=== PATIENT | male | born 1985 | race Caucasian/White ===

== ENCOUNTER 2018-06-09 09:11 | Emergency (ER) | payer MEDICAID ==
[2018-06-09] MEDS ORDERED: KETOROLAC 30 MG/1 ML SDV IVP ONE (11:02)
[2018-06-09] MEDS ORDERED: DEXAMETHASONE 10 MG/ML VIAL IVP ONE (11:02)
[2018-06-09] MEDS ORDERED: CYCLOBENZAPRINE 10 MG TAB PO ONE (11:04)
[2018-06-09] MEDS ORDERED: fentaNYL 100 MCG/2 ML INJ IVP ONE (11:04)
--- NOTE | 2018-06-09 11:09 | EDPHY ---
H & P Stated Complaint: NICOLE Time Seen by Provider: 06/09/18 10:34 HPI/ROS: CHIEF COMPLAINT: Right-sided headache HISTORY OF PRESENT ILLNESS: 33-year-old male presents emergency department reporting that for the last 3 weeks he has frequently been waking up around 5: 00 a.m. In the morning with a severe right-sided headache. Pain seems to emanate from the occipital area and upper neck on the right. Patient feels like he is dehydrated when he wakes in the morning he "guzzles a bunch of fluid ". He then vomits. He has otherwise had no nausea or vomiting with these headaches. Patient also feels that he is off balance. No weakness, numbness or tingling in arms or legs. No cold symptoms. Has a history of prior headaches thought to be associated to poor dentition. Denies an actual history of migraine headaches. Currently is living at a friend's home. No fevers or chills. No chest pain, shortness of breath, palpitations, the diarrhea, urinary complaints. REVIEW OF SYSTEMS: A comprehensive 10 system review of systems was reviewed and is otherwise negative aside from elements mentioned in the history of present illness and medical decision making. PAST MEDICAL HISTORY: Headaches. SOCIAL HISTORY: Prior history of homelessness, currently staying with a friend. Nonsmoker. No alcohol. Does smoke marijuana occasionally. VITAL SIGNS Reviewed by me. GENERAL: Well-developed, well-nourished, intermittently tearful when he is describing his headache pain.. HEENT: Atraumatic. Eyes: PERRL, EOMI, no nystagmus. No icterus. No injection. Mouth: moist mucous membranes. No erythema or lesions. Poor dentition throughout, but patient denies any acute dental pain. Neck: No meningitis. Tenderness at the right occipital condyle and high cervical spine. No adenopathy. Negative Kernig's. Negative Brudzinski's. No meningismus. LUNGS: Clear to auscultation bilaterally, no wheezes, rhonchi or rales. CARDIAC: Regular rate and rhythm, no rubs, murmurs or gallops. ABDOMEN: Soft, nontender, nondistended, bowel sounds normal. BACK: No CVA tenderness. EXTREMITIES: No trauma. No edema. Range of motion is normal throughout. NEURO: Alert and oriented, cranial nerves II through XII are intact. Motor strength 5 over 5 in all major muscle groups. Sensation intact to light touch. Normal gait. [id number] and [id number] normal. SKIN: Warm and dry, no rash. PSYCHIATRIC: Normal mentation, no agitation. - Personal History Current Tetanus/Diphtheria Vaccine: Yes Current Tetanus Diphtheria and Acellular Pertussis (TDAP): Yes Tetanus Vaccine Date: < 10 years - Medical/Surgical History Hx Asthma: No Hx Chronic Respiratory Disease: No Hx Diabetes: No Hx Cardiac Disease: No Hx Renal Disease: No Hx Cirrhosis: No Hx Alcoholism: No Hx HIV/AIDS: No Hx Splenectomy or Spleen Trauma: No Other PMH: JOSEP, migraines, - Social History Smoking Status: Former smoker Constitutional: Initial Vital Signs Temperature (C) 36.4 C 06/09/18 09:36 Heart Rate 62 06/09/18 09:36 Respiratory Rate 24 H 06/09/18 09:36 Blood Pressure 118/67 06/09/18 09:36 O2 Sat (%) 100 06/09/18 09:36 O2 Delivery Mode Room Air O2 (L/minute) 2 Allergies/Adverse Reactions: No Known Allergies Allergy (Verified 06/09/18 09:35) Home Medications: Medication Instructions Recorded Carisoprodol [Soma (*)] 350 mg PO TIDMEAL PRN #20 tab 06/09/18 traMADol [Ultram 50 mg (*)] 50 mg PO Q4 PRN #20 tab 06/09/18 Medical Decision Making - Diagnostics Imaging Results: CT Head: Impression: 1. Normal CT brain without contrast. 2. No sinusitis. 3. No acute hemorrhage. Findings and recommendations discussed with Emergency Department physician, Sabine Sunshine MD, at 1130 hour, 06/09/2018. Final report concurs with initial preliminary interpretation. Dictated By: Librado Carballo CT Cervical spine: Impression: 1. No definite fracture. 2. Mild to moderate degenerative disk disease from C4-C5 through C6-C7 resulting in mild central canal stenosis and mild to moderate bilateral neural foraminal stenosis. 3.If there is persistent pain or neurological deficit, recommend MR cervical spine and consider flexion and extension views, if clinically indicated. Findings and recommendations discussed with Emergency Department physician, Sabine Sunshine MD, at 1130 hour , 06/09/2018. Final report concurs with initial preliminary interpretation. Dictated By: Librado Carballo Imaging: Discussed imaging studies w/ call circuit worker Radiologist ED Course/Re-evaluation: 33 year old male with history of right sided headache when waking for the past several weeks. Ct scan of head demonstrates no acute finding; Ct of cervical spine demonstrates DJD without acute fracture. On exam: patient's headache pain seems to emminate from the right occipital condlye and upper c-spine. Suspect muscular etiology or tension headache etiology of pain. Patient has not taken meds for his headache. Doubt serious intracranial pathology with neg head CT. Neurologic exam is normal, TM's are clear. No evidence for gait instability on my examination. Given decadron, flexeril, toradol and small amount of fentanyl. Referred to PCP and to neurology. May represent a cluster headache phenomena. Differential Diagnosis: After history was obtained, and the physical exam performed, a differential for headache was considered including, but not limited to, subarachnoid hemorrhage, migraine headache, tension headache and infectious causes such as meningitis, sinusitis, encephalitis. - Data Points Laboratory Results: Laboratory Results 06/09/18 10:55 06/09/18 10:55 Medications Given: Discontinued Medications Cyclobenzaprine HCl (Flexeril) 10 mg PO EDNOW ONE Stop: 06/09/18 11:05 Last Admin: 06/09/18 11:25 Dose: 10 mg Dexamethasone (Decadron Injection) 10 mg IVP EDNOW ONE Stop: 06/09/18 11:03 Last Admin: 06/09/18 11:27 Dose: 10 mg Fentanyl (Sublimaze) 50 mcg IVP EDNOW ONE Stop: 06/09/18 11:05 Last Admin: 06/09/18 11:27 Dose: 50 mcg Ketorolac Tromethamine (Toradol) 30 mg IVP EDNOW ONE Stop: 06/09/18 11:03 Last Admin: 06/09/18 11:26 Dose: 30 mg Departure - Departure Disposition: Home, Routine, Self-Care Clinical Impression: Headache Qualifiers: Headache type: unspecified Headache chronicity pattern: chronic headache Intractability: not intractable Qualified Code(s): R51 - Headache Condition: Good Instructions: Cluster Headache (ED), Tension Headache (ED), Acute Headache (ED) Additional Instructions: There is no clear cause of your headaches identified on the CT scan or on the CT scan of your neck. You do have some degenerative changes in your neck. This may be causing the neck pain. I suggested you take Soma as directed. This is a muscle relaxant. You also may take Tylenol and ibuprofen as needed to help with the headache discomfort. You have also been given a prescription for tramadol to use as needed for more severe headache pain. Please follow up with the neurologist as directed. Referrals: NONE *PRIMARY CARE P,. [Primary Care Provider] - As per Instructions Arvind Florian MD [Medical Doctor] - As per Instructions Prescriptions: Carisoprodol [Soma (*)] 350 mg PO TIDMEAL PRN #20 tab PRN Reason: muscle spasm traMADol [Ultram 50 mg (*)] 50 mg PO Q4 PRN #20 tab PRN Reason: pain
[2018-06-09 11:10] LABS: PLATELET COUNT 288 10^3/uL (150-400)
[2018-06-09 13:23] VITALS: BP 121/75
== END 2018-06-09 13:22 | disposition home or self-care (01) ==
DX: R51 Headache (principal)
CPT/HCPCS: 96374; J1100; J1885; J3010